=== PATIENT | female | born 1965 | race Caucasian/White ===

== ENCOUNTER 2021-03-19 21:59 | Emergency (ER) | payer BC, SELFPAY ==
[2021-03-19 22:08] VITALS: BP 136/60; PULSE 66; O2SAT 98
[2021-03-19 22:13] VITALS: BP 129/62; PULSE 62; RESP 16; TEMP 36.6; O2SAT 98; BMI 32.4
== END 2021-03-20 00:49 | disposition left against medical advice (07) ==
PROVIDERS: Emergency Provider Emergency Medicine
DX: K59.00 Constipation, unspecified (principal); R11.2 Nausea with vomiting, unspecified; Q79.60 Ehlers-Danlos syndrome, unspecified
CPT/HCPCS: 99282; 99283

== ENCOUNTER 2021-04-28 11:33 | Emergency (ER) | payer BC, SELFPAY ==
[2021-04-28 11:46] VITALS: BP 180/91; PULSE 76; RESP 16; TEMP 36.9; O2SAT 98; BMI 37.4
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
[2021-04-28 13:00] LABS: Appearance Urine CLEAR; Color Urine YELLOW; Glucose Urine UA NEG (NEG); Leukocyte Esterase Urine NEG (NEG); Nitrite Urine NEG (NEG); PH 6.5 (5.0-8.0); Urine Blood NEG (NEG); Urine Ketones NEG (NEG); Urine Protein NEG (NEG-TRACE)
[2021-04-28 13:12] LABS: COVID-19 Test Negative (Negative)
[2021-04-28 13:17] LABS: Amphetamine Screen Urine Not Detected (Not Detect); Barbiturates, Urine Not Detected (Not Detect); Benzodiazepines Screen Urine Not Detected (Not Detect); Cannabinoid Screen Urine POSITIVE (Not Detect); Cocaine Screen Urine Not Detected (Not Detect); Fentanyl, urine Not Detected (Not Detect); Opiate Screen Urine Not Detected (Not Detect); Phencyclidine Screen Urine Not Detected (Not Detect)
[2021-04-28 15:05] VITALS: BP 127/90; PULSE 73; RESP 16; O2SAT 98
--- NOTE | 2021-04-28 18:03 | MHC.CARE ---
Pt is a 56 y/o Persian speaking female, who is previously unknown to the CARE Team.? Today, EMS was called by pt?s counselor at [facility] after an argument between pt and her counselor related to the completion of disability paperwork.? Pt was placed on a section 12 by her counselor?s day care supervisor and transported to the ED.? Pt has been medically cleared and is being assessed by the CARE Team to determine appropriate treatment recommendations. Pt has no known hx of mental illness diagnosis, substance use, and suicide attempts.? ?Pt is alert and oriented x4 and is assessed in her room in the [facility] behavioral health pod.? She is dressed in hospital attire, appears neat and well-groomed and her stated age.? Her speech and eye contact are within normal limits, no significant changes to appetite or sleep.? Her mood is frustrated, her affect is variable and within normal limits.? She denies SI, HI, AVH and states she has never experienced such things.? Her Insight, judgement, memory, concentration, and Impulse control do not appear compromised. Pt has had a series of significant life events that that have been major stressors.? She has been recently diagnosed with a chronic, progressing illness that she will likely not recover from.? This has resulted in the loss of her career of 35 years, loss of her ability to engage in the rigorous physical activities she once did.? This also came with a loss of income, and the potential for her to be unable to live alone.? Pt has sought out counseling services as she needs ?Help unpacking all this.?? She had been accepted at [facility] where she has had 4 counseling sessions, 2 of which were intakes.? She stated today that she brought disability paperwork to her counselor to have it signed by her.? Her counselor was reluctant to sign any paperwork related to a physical illness and an argument ensued with pt growing frustrated with her counselor.? Her counselor called her day care supervisor who met with pt.? Pt grew frustrated, expressed her frustration and was reported to ?Punch herself in the head repeatedly?.? Pt denies such actions stating that she struck her hands against her thighs while emphasizing the point of her frustration.? Pt was placed on a section 12 by the counseling day care supervisor and transported to this facility. Collateral report from the day care supervisor indicates that the section 12 was initiated because pt ?dysregulated? and stopped talking to the day care supervisor when she intervened.? The initial plan was to have crisis come and assess the pt but there was concern as pt would not answer questions or speak to the counseling day care supervisor. The plan is for pt to be discharged as she does not meet inpatient criteria.? Pt will be discharged and CARE Team will place a referral to the partial hospitalization program.? This disposition was discussed with and agreed upon by ED provider JANEL Salazar, CARE safety coordinator Natasha Schultz, and Pt?s nurse.
== END 2021-04-28 18:01 | disposition home or self-care (01) ==
PROVIDERS: Physician Assistant; Emergency Provider Emergency Medicine Emergency Medical Services
DX: F41.9 Anxiety disorder, unspecified (principal); F32.9 Major depressive disorder, single episode, unspecified; G89.29 Other chronic pain; Q79.60 Ehlers-Danlos syndrome, unspecified; Z91.14 Patient's other noncompliance with medication regimen; Z20.822 Contact with and (suspected) exposure to COVID-19
CPT/HCPCS: 36415; 80307; 81003; 87635; 99284

== ENCOUNTER 2021-06-02 10:30 | Outpatient (RCR) | payer BC, SELFPAY ==
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
--- NOTE | 2021-05-10 15:21 | PC.NURSE ---
Case opened in treatment team.
--- NOTE | 2021-05-10 15:35 | HO.PHPPROGNO ---
Subjective Subjective Date of Service: 05/10/21 Reason For Visit: Adjustment D/o with Anxiety Guardianship: No Medical Problems Affecting Mental Status: No Interim History: Sheryl reports I'm okay today . Denies any thoughts of harm to self or others, denies any type of suicidal ideation, no safety concern. She reports that she did review medications that or discussed last week. She believes that she may continue to take gabapentin at night, she has it scheduled between 1 and 200 mg as a p.r.n., but she has decided she will start taking it to 100 mg at night consistently, to see if it helps with anxiety. She is also willing to trial a medication for depression and anxiety. Medication Compliance: Yes Side effects from medications: No Attending Groups: Yes Review of Systems Acute medical concerns: Yes Chronic pain related to medical issues. Review of Systems Review of Systems A review of systems was completed and no changes from last encounter. Constitutional: Reports no additional constitutional complaints Eyes: Reports no additional eye complaints Reports Normal hearing present Reports Normal hearing present Mental Status Exam Mental Status Exam Narrative: Well-developed, well-nourished female, in no apparent distress. No involuntary movements, motor activity calm, posture within normal limits. Patient Appearance: Well Grooomed, Fatigued and Appropriate Patient Orientation: Person, Place, Time and Situation Level of Consciousness: Awake, Appropriate and Alert Patient Behavior: Appropriate, Cooperative and Good Eye Contact Mood Description: Appropriate, Depressed and Anxious Affect Description: Appropriate, Depressed and Anxious Patient Cognition Impaired: No Ability to Follow Directions: Excellent Speech Pattern: Clear, Difficulty Finding Words, Appropriate and Coherent Memory Description: Intact Hallucinations: None Delusions: Not Present Thought Process: Intact, Goal Oriented and Linear Thought Content: positive for Intact, positive for Goal Oriented and positive for Linear Depressive Symptoms: Increased Anxiety, Diff. Making Decisions, Difficulty Sleeping, Crying Spells, Significant Weight Loss, Feelings of Worthlessness, Hopelessness, Feelings of Guilt, Increased Fatigue, Low Self Esteem and Difficulty Concentrating Judgement: Fair Assessment & Plan Assessment & Plan (1) Major depressive disorder, recurrent severe without psychotic features: Status: Acute Code(s): F33.2 - Major depressive disorder, recurrent severe without psychotic features Assessment and Plan: Discussed various medications with client that can address both depressive symptoms as well as anxiety symptoms. She also takes gabapentin, plans to consider using gabapentin every night instead of p.r.n., and to take the full 200 mg dose that she is prescribed rather than between 1 and 200 mg going forward. Various medications were discussed, including risks and benefits of each, side effects, other alternatives. Client is willing to start Effexor 37.5 mg at this time. (2) Generalized anxiety disorder: Status: Acute Code(s): F41.1 - Generalized anxiety disorder Assessment and Plan: 1. Start Effexor XR 37.5mg daily. Script sent to pharmacy. 2. Follow-up as per protocol. Patient educated on: diagnosis, medication risk/benefits and therapeutic strategies Informed Consent: understands Reason for contiued partial hosp. stay Substantial Risk for: inability to function and med/psych decompensation Certification I certify that partial hospital treatment is medically necessary due to the symptoms and problems resulting from the patient's mental illness and the failure to treat the patient at the partial hospital level of care would likely result in the patient requiring inpatient psychiatric care which could not be prevented at a less intensive level of care. I spent minutes with the patient and/or on the patient floor today, greater than?50% of which was spent counseling/coordinating care. Discharge Plan Discharge Attending provider: Chacho Edge Medications: New venlafaxine [Effexor XR] 37.5 mg capsule,extended release 24hr 37.5 mg PO DAILY 7 Days Qty: 7 RF: 0 No Action metformin 500 mg Tablet 500 mg PO BID RF: 0 docusate sodium [Stool Softener] 100 mg Capsule 100 mg PO BEDTIME RF: 0 montelukast 10 mg Tablet 10 mg PO QPM RF: 0 bisacodyl [Dulcolax (bisacodyl)] 5 mg Tablet,Delayed Release (Dr/Ec) 5 mg PO DAILY RF: 0 gabapentin 100 mg Tablet 100 - 200 mg PO BEDTIME PRN (Reason: Pain) RF: 0 Telehealth Telehealth Location of provider rendering services: practice address Location of patient: address on file Patient Identification confirmed using: Name, : Yes Telehealth method: video Patient verbally consented to treatment: Yes Patient verbally consented to billing insurance company: Yes Patient informed of any privacy concerns related to visit: Yes Time spent with patient (mins): 15
--- NOTE | 2021-05-18 13:29 | PC.NURSE ---
Called patient's PCP's office of Dr Dockery and asked if they could refill patient prescriptions until she gets an appointment with a psychiatric medication prescriber. Nguyen from the office called back and stated that Dr Dockery would be willing to refill prescription Effexor. Will fax d/c medication list when patient discharges. Spoke to Sheryl and let her know however Sheryl stated she has not started the medication as of yet as she does not want to be on too many medications. Medication education provided. Patient stated she may decide to take the medication.
--- NOTE | 2021-05-19 13:28 | PC.NURSE ---
I called and referred pt to Jan[facility]. She has an Intake appointment on , 05/27/2021, at 9am with RENÉ Saldana.?It will be through telehealth (Zoom), but the physical location is [facility], [address] in [place].
--- NOTE | 2021-05-24 15:23 | P.PNPSP_ITS ---
Subjective Subjective Date of Service: 05/24/21 Reason For Visit: Adjustment D/o with Anxiety Guardianship: No Medical Problems Affecting Mental Status: No Interim History: Sheryl reports she has begun taking gabapentin more consistently. Reports she has not taken the Effexor, as she is worried about side effects. She stated her goal is less medication not more. Denies any type of thought of harm to self or others. Denies any real improvements regarding symptoms of anxiety and depressive mood. Medication Compliance: Intermittent Side effects from medications: No Attending Groups: Yes Review of Systems Acute medical concerns: No Medical Review of Systems: unchanged Mental Status Exam Mental Status Exam Narrative: Well-developed, well-nourished female, in no apparent distress. No involuntary movements, motor activity calm, posture within normal limits. Patient Appearance: Well Grooomed and Appropriate Patient Orientation: Person, Place, Time and Situation Level of Consciousness: Awake, Appropriate and Alert Patient Behavior: Appropriate, Cooperative, Anxious and Good Eye Contact Mood Description: Appropriate, Depressed, Anxious and Apprehensive (Reports feeling apprehensive regarding medications and potential side effects.) Affect Description: Appropriate, Depressed and Anxious Patient Cognition Impaired: No Ability to Follow Directions: Excellent Speech Pattern: Clear, Appropriate and Coherent Memory Description: Intact Hallucinations: None Delusions: Not Present Thought Process: Intact, Goal Oriented and Linear Thought Content: positive for Intact, positive for Goal Oriented and positive for Linear Depressive Symptoms: Increased Anxiety, Diff. Making Decisions, Difficulty Sleeping, Crying Spells, Significant Weight Loss, Feelings of Worthlessness, Hopelessness, Feelings of Guilt, Unhappiness, Increased Fatigue and Low Self Esteem Judgement: Fair Assessment & Plan Assessment & Plan (1) Major depressive disorder, recurrent severe without psychotic features: Status: Acute Code(s): F33.2 - Major depressive disorder, recurrent severe without psychotic features Assessment and Plan: Sheryl reports she continues with dysphoric mood. CT recently , she picked up ashes over weekend. Has found herself feeling sad, reports that she has had a difficult time over the past week. Denies any thought of harm to self or others, no safety concern at this time. She has not taken Effexor, as she is concerned about side effects. Multiple questions answered regarding medications, she is willing to start low-dose of Cymbalta at this time. (2) Generalized anxiety disorder: Status: Acute Code(s): F41.1 - Generalized anxiety disorder Assessment and Plan: Continues with anxiety, reports she has been taking gabapentin nightly although only 100 mg. She states she has taken the other 100 mg several times, when she has a woken during the night. She reports she does not really feel the gabapentin is completely effective in helping with any type of anxiety, although it does help with some pain. Willing to try Cymbalta for depressive symptoms, anxiety symptoms, and to improve pain. Discuss risks, benefits, side effects, and alternatives of medication. Assessment and Plan: 1. Start cymbalta 20mg BID. 2. D/C Effexor. 3. Client to continue with gabapentin as prescribed. 4. Follow-up as per protocol. Patient educated on: diagnosis, medication risk/benefits and therapeutic strategies Informed Consent: understands Reason for contiued partial hosp. stay Substantial Risk for: inability to function and med/psych decompensation Certification I certify that partial hospital treatment is medically necessary due to the symptoms and problems resulting from the patient's mental illness and the failure to treat the patient at the partial hospital level of care would likely result in the patient requiring inpatient psychiatric care which could not be prevented at a less intensive level of care. I spent minutes with the patient and/or on the patient floor today, greater than?50% of which was spent counseling/coordinating care. Discharge Plan Discharge Attending provider: Chacho Edge Additional Instructions: Intake appointment?for therapy at [facility] ([facility]). It's on , 05/27/2021, at 9am with RENÉ Saldana.?It will be through telehealth (Zoom), but the physical location is [facility], [address] [place] [address] in [place]. You can reach them at?[phone], option 2 for central registration. Medications: New duloxetine [Cymbalta] 20 mg capsule,delayed release(DR/EC) 20 mg PO BID Qty: 28 RF: 0 No Action metformin 500 mg Tablet 500 mg PO BID RF: 0 docusate sodium [Stool Softener] 100 mg Capsule 100 mg PO BEDTIME RF: 0 montelukast 10 mg Tablet 10 mg PO QPM RF: 0 bisacodyl [Dulcolax (bisacodyl)] 5 mg Tablet,Delayed Release (Dr/Ec) 5 mg PO DAILY RF: 0 gabapentin 100 mg Tablet 100 - 200 mg PO BEDTIME PRN (Reason: Pain) RF: 0 Stand Alone Forms: Patient Portal Discharge page Telehealth Telehealth Location of provider rendering services: practice address Location of patient: address on file Patient Identification confirmed using: Name, : Yes Telehealth method: video Patient verbally consented to treatment: Yes Patient verbally consented to billing insurance company: Yes Patient informed of any privacy concerns related to visit: Yes Time spent with patient (mins): 15
--- NOTE | 2021-05-28 13:24 | PC.NURSE ---
At pt's request, I called Venkates[facility] Sauer and left a message for Mary ([phone]). I let Ann know that pt is enrolled in [facility] and scheduled to discharge on 06/02/2021.
--- NOTE | 2021-06-01 15:13 | PC.NURSE ---
Pt still does not have a scheduled appt with a therapist or med provider at [facility], though she had an intake last week. I called to find out the status of this. I was given the number for Alix Mcleod at [facility] for this info ([phone]). I called and left a message asking about an appt for pt and about groups she might attend while waiting (as pt indicated they might have some groups she can attend). I then called pt and gave her Alix's number.
--- NOTE | 2021-06-02 14:00 | PC.NURSE ---
Patient scheduled to discharge from [facility] today. Reviewed patient medications with patient. Patient reports taking them as prescribed. Stated she is nervous about discharge however stated the program was good for me . Denied SI.
--- NOTE | 2021-06-02 16:11 | P.PNPSP_ITS ---
Subjective Subjective Date of Service: 06/02/21 Reason For Visit: Adjustment D/o with Anxiety Guardianship: No Medical Problems Affecting Mental Status: No Interim History: Sheryl reports ?I am well today ?. She reports that she started taking some the Cymbalta 20 mg, has taken it for approximately 3 days. She was hesitant at 1st due to nausea and dizziness, but does report that she regularly has the symptoms and does not believe they are exclusively from the medication. She states that she has had a discussion with the neurologist in the past and that they had also recommended Cymbalta as a medication choice. She plans to continue with it daily. She is also taking her gabapentin more consistently at night. Reports a decrease in depressive symptoms as well as anxiety, and feels ready for discharge from [facility] at this time. Denies any thought of harm to self or others, no safety concerns. Medication Compliance: Intermittent Side effects from medications: No Attending Groups: Yes Review of Systems Acute medical concerns: No Medical Review of Systems: unchanged Mental Status Exam Mental Status Exam Narrative: Well-developed, well-nourished female, in no apparent distress. No involuntary movements, motor activity calm, posture within normal limits. Patient Appearance: Well Grooomed and Appropriate Patient Orientation: Person, Place, Time and Situation Level of Consciousness: Awake, Appropriate and Alert Patient Behavior: Appropriate, Cooperative and Good Eye Contact Mood Description: Calm and Appropriate Affect Description: Appropriate and Anxious Patient Cognition Impaired: No Ability to Follow Directions: Excellent Speech Pattern: Clear, Appropriate, Spontaneous Speech and Coherent Memory Description: Intact Hallucinations: None Delusions: Not Present Thought Process: Intact, Goal Oriented and Linear Thought Content: positive for Intact, positive for Goal Oriented and positive for Linear Depressive Symptoms: Increased Anxiety, Diff. Making Decisions and Difficulty Sleeping Judgement: Good Assessment & Plan Assessment & Plan (1) Major depressive disorder, recurrent severe without psychotic features: Status: Acute Code(s): F33.2 - Major depressive disorder, recurrent severe without psychotic features Assessment and Plan: Sheryl reports an overall improvement in her depression and anxiety symptoms. Looking forward to starting work with a new provider, is currently on a wait list for therapist. She states that she does not need any refills at this time, as her PCP has agreed to provide scripts for the interim. Plans to continue Cymbalta 20 mg, and consistently taking the gabapentin. She reports feeling stable for discharge. (2) Generalized anxiety disorder: Status: Acute Code(s): F41.1 - Generalized anxiety disorder Assessment and Plan: 1. No medication changes at this time. 2. Patient is stable for discharge from [facility] at this time. 3. Patient will follow-up with outpatient providers going forward. Patient educated on: diagnosis, medication risk/benefits and therapeutic strategies Informed Consent: understands Reason for contiued partial hosp. stay Substantial Risk for: stable for discharge Certification I certify that partial hospital treatment is medically necessary due to the symptoms and problems resulting from the patient's mental illness and the failure to treat the patient at the partial hospital level of care would likely result in the patient requiring inpatient psychiatric care which could not be prevented at a less intensive level of care. I spent minutes with the patient and/or on the patient floor today, greater than?50% of which was spent counseling/coordinating care. Discharge Plan Discharge Attending provider: Chacho Edge Additional Instructions: Intake appointment?for therapy at [facility] ([facility]) was on , 05/27/2021, at 9am with Camryn Castillo [facility]. The physical location is [facility], [address] [place] [address] in [place]. You can reach them at?[phone], option 2 for central registration.The first appointment with a therapist is pending. Contact Alix Mcleod at [phone] for information on the status of the appointment. Medications: New duloxetine [Cymbalta] 20 mg capsule,delayed release(DR/EC) 20 mg PO BID Qty: 28 RF: 0 No Action metformin 500 mg Tablet 500 mg PO BID RF: 0 docusate sodium [Stool Softener] 100 mg Capsule 100 mg PO BEDTIME RF: 0 montelukast 10 mg Tablet 10 mg PO QPM RF: 0 bisacodyl [Dulcolax (bisacodyl)] 5 mg Tablet,Delayed Release (Dr/Ec) 5 mg PO DAILY RF: 0 gabapentin 100 mg Tablet 100 - 200 mg PO BEDTIME PRN (Reason: Pain) RF: 0 Stand Alone Forms: Patient Portal Discharge page Telehealth Telehealth Location of provider rendering services: practice address Location of patient: address on file Patient Identification confirmed using: Name, : Yes Telehealth method: video Patient verbally consented to treatment: Yes Patient verbally consented to billing insurance company: Yes Patient informed of any privacy concerns related to visit: Yes Time spent with patient (mins): 15
== END 2021-06-07 07:22 | disposition home or self-care (01) ==
LOC: HO.PHPA 10:30
PROVIDERS: Visit Provider Psychiatry & Neurology Psychiatry
DX: F33.2 Major depressive disorder, recurrent severe without psychotic features (principal); F41.1 Generalized anxiety disorder
CPT/HCPCS: 90853